=== PATIENT | male | born 1980 | race Caucasian/White ===

== ENCOUNTER 2021-03-04 10:56 | Emergency (ER) | payer OTHER, BC ==
--- NOTE | 2021-03-04 11:44 | EDM.PDOC ---
ED HPI GENERAL MEDICAL PROBLEM - General Chief Complaint: Upper Extremity Injury/Pain Stated Complaint: HURT LT SHOULDER AT WORK Time Seen by Provider: 03/04/21 11:44 Source of Information: Reports: Patient, RN Notes Reviewed History Limitations: Reports: No Limitations - History of Present Illness INITIAL COMMENTS - FREE TEXT/NARRATIVE: Chandler presents today for complaints of sudden onset left shoulder pain that occurred at work. He states he was pushing down on a shaker at [employer] when he suddenly had acute pain to the left shoulder with numbness/tingling and difficulty raising left arm. He denies injury, trauma, fever, chills, nausea, vomiting, change in bowel/bladder. Chandler reports he notified his employer of injury. - Related Data Allergies Allergy/AdvReac Type Severity Reaction Status Date / Time Sulfa (Sulfonamide Allergy Other Verified 03/04/21 11:28 Antibiotics) Home Meds: Home Meds NK [No Known Home Meds] 03/04/21 [History] Past Medical History HEENT History: Reports: Impaired Vision Endocrine/Metabolic History: Reports: Obesity/BMI 30+ - Infectious Disease History Infectious Disease History: Reports: Chicken Pox, Novel Coronavirus - Past Surgical History Head Surgeries/Procedures: Reports: None HEENT Surgical History: Reports: None Endocrine Surgical History: Reports: None Dermatological Surgical History: Reports: None Social & Family History - Tobacco Use Tobacco Use Status *Q: Never Tobacco User Second Hand Smoke Exposure: No - Caffeine Use Caffeine Use: Reports: Coffee - Recreational Drug Use Recreational Drug Use: No Review of Systems - Review of Systems Review Of Systems: See Below Constitutional: Reports: No Symptoms Eyes: Reports: No Symptoms Ears: Reports: No Symptoms Nose: Reports: No Symptoms Mouth/Throat: Reports: No Symptoms Respiratory: Reports: No Symptoms Cardiovascular: Reports: No Symptoms GI/Abdominal: Reports: No Symptoms Genitourinary: Reports: No Symptoms Musculoskeletal: Reports: Shoulder Pain (left shoulder pain with sudden onset while working. 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 ), Muscle Pain, Muscle Stiffness. Denies: Neck Pain, Back Pain Skin: Reports: No Symptoms Neurological: Reports: No Symptoms Psychiatric: Reports: No Symptoms ED EXAM, GENERAL - Physical Exam Exam: See Below Exam Limited By: No Limitations General Appearance: Alert, WD/WN, No Apparent Distress Head: Atraumatic, Normocephalic Neck: Normal Inspection, Supple, Non-Tender, Full Range of Motion. No: Lymphadenopathy (R), Lymphadenopathy (L) Respiratory/Chest: No Respiratory Distress, Lungs Clear, Normal Breath Sounds, No Accessory Muscle Use, Chest Non-Tender. No: Crackles, Rales, Rhonchi, Wheezing, Stridor, Accessory Muscle Use, Retractions Cardiovascular: Normal Peripheral Pulses, Regular Rate, Rhythm, No Edema, No Gallop, No Murmur, No Rub Peripheral Pulses: 4+: Radial (L), Radial (R) GI/Abdominal: Other (Not examined) (Male) Exam: Deferred Rectal (Males) Exam: Deferred Back Exam: Normal Inspection, Full Range of Motion. No: CVA Tenderness (R), CVA Tenderness (L) Extremities: No Pedal Edema, Normal Capillary Refill, Limited Range of Motion (pain with abduction. Decreased ROM to 90 degrees. ). No: Increased Warmth, Mottled, Redness Neurological: Alert, Oriented, CN II-XII Intact, Normal Cognition, Normal Gait, Normal Reflexes, No Motor/Sensory Deficits Psychiatric: Normal Affect, Normal Mood Skin Exam: Warm, Dry, Intact, Normal Color, No Rash Lymphatic: No Adenopathy Course - Vital Signs Last Recorded V/S: Last Vital Signs Temp 36.4 C 03/04/21 11:28 Pulse 82 03/04/21 11:28 Resp 16 03/04/21 11:28 BP 193/80 H 03/04/21 11:28 Pulse Ox 96 03/04/21 11:28 - Orders/Labs/Meds Orders: Active Orders 24 hr Category Date Time Status Consult to Orthopedics [CONS] Routine Cons 03/04/21 12:49 Ordered Shoulder Comp Lt [CR] Stat Exams 03/04/21 12:13 Taken Meds: Medications Discontinued Medications Generic Name Dose Route Start Last Admin Trade Name Freq PRN Reason Stop Dose Admin Ketorolac Tromethamine 30 mg 03/04/21 12:15 03/04/21 12:28 Ketorolac 30 Mg/Ml Sdv IM 03/04/21 12:16 30 mg ONETIME ONE Administration Repeat BP 164/82 - Radiology Interpretation Free Text/Narrative:: Left shoulder x-ray wet read/reviewed. Noted not acute findings. Radiologist read pending. - Re-Assessments/Exams Free Text/Narrative Re-Assessment/Exam: Patient notified of x-ray findings and need for follow up. Care and education provided on use of sling, follow up, may need PT. Patient verbalized understanding, all his questions were answered. Follow up with primary for hypertension. Departure - Departure Time of Disposition: 12:45 Disposition: Home, Self-Care 01 Condition: Good Clinical Impression: Strain of left shoulder - Discharge Information *PRESCRIPTION DRUG MONITORING PROGRAM REVIEWED*: Not Applicable *COPY OF PRESCRIPTION DRUG MONITORING REPORT IN PATIENT MELLO: Not Applicable Instructions: How to use a Sling, [id number], Shoulder Pain, [id number] Referrals: PCP,None [Primary Care Provider] - Forms: ED Department Discharge Additional Instructions: You have been evaluated and treated for left shoulder strain. Injury occurred while at work. Use sling to help with support and rest. Rest, ice, elevate to help with pain. No work with left arm/shoulder to avoid further injury. Take ibuprofen (advil, motrin) 800mg by mouth three times a day as needed for pain with food for pain. Take acetaminophen (tylenol) 1000mg by mouth three times a day as needed for pain. You can use lidocaine patches, one on for 12 hours then off for 12 hours as needed for pain. Follow up with orthopedics, you may need physical therapy and more advance radiologic imaging. Return for any worsening, issues or concerns. Sepsis Event Note (ED) - Evaluation Sepsis Screening Result: No Definite Risk - Focused Exam Vital Signs: Vital Signs Temp Pulse Resp BP Pulse Ox 03/04/21 11:28 36.4 C 82 16 193/80 H 96 03/04/21 11:20 36.4 C 82 16 193/80 H 96 - My Orders Last 24 Hours: My Active Orders 03/04/21 12:13 Shoulder Comp Lt [CR] Stat 03/04/21 12:49 Consult to Orthopedics [CONS] Routine - Assessment/Plan Last 24 Hours: My Active Orders 03/04/21 12:13 Shoulder Comp Lt [CR] Stat 03/04/21 12:49 Consult to Orthopedics [CONS] Routine Assessment:: Strain of left shoulder Plan: Patient evaluated and treated for left shoulder strain. Injury occurred while at work. Use sling to help with support and rest. Rest, ice, elevate to help with pain. No work with left arm/shoulder to avoid further injury. Take ibuprofen (advil, motrin) 800mg by mouth three times a day as needed for pain with food for pain. Take acetaminophen (tylenol) 1000mg by mouth three times a day as needed for pain. You can use lidocaine patches, one on for 12 hours then off for 12 hours as needed for pain. Follow up with orthopedics, you may need physical therapy and more advance radiologic imaging. Return for any worsening, issues or concerns.
[2021-03-04] MEDS ORDERED: Ketorolac 30 MG/ML SDV IM ONE (12:15)
--- NOTE | 2021-03-06 09:20 | CR ---
Shoulder Comp Lt CLINICAL HISTORY: Pain, strain FINDINGS: There is no acute fracture or dislocation in the left shoulder. Articular surfaces are smooth Impression: Negative
== END 2021-03-04 12:50 | disposition home or self-care (01) ==
LOC: JP.ED 10:56
DX: S46.912A Strain of unspecified muscle, fascia and tendon at shoulder and upper arm level, left arm, initial encounter (principal); E66.9 Obesity, unspecified; Z88.2 Allergy status to sulfonamides; Z68.43 Body mass index [BMI] 50.0-59.9, adult; X50.1XXA Overexertion from prolonged static or awkward postures, initial encounter; Y99.0 Civilian activity done for income or pay
CPT/HCPCS: 73030; 96372; 99283; J1885